=== PATIENT | female | born 1995 | race Hispanic/Latino ===

== ENCOUNTER 2017-01-26 16:06 | Day surgery (SDC) | payer MEDICAID ==
[2017-01-26 16:45] VITALS: BMI 25.5
[2017-01-26 17:25] LABS: Bilirubin Negative (Negative); Blood, Urine Small (Negative); Glucose, Urine (Dipstick) Negative (Negative); Ketone, Urine Negative (Negative); Nitrite Negative (Negative); Protein, Urine (Dipstick) Negative (Neg-Trace)
[2017-01-26 17:28] LABS: Bacteria/HPF None Seen HPF (None Seen); Hyaline Casts/LPF 0-3 HYALINE CAST LPF (0-3 Hyaline); Squamous Epithelial 0-3 HPF (0-3); WBC/HPF 0-3 HPF (0-3)
[2017-01-26] MEDS ORDERED: FLU VACC QS2017-18 36 mo. & older 0.5 ML SYRINGE IM ONE (17:30)
--- NOTE | 2017-01-26 18:37 | CON ---
DATE OF SERVICE: 01/26/2017 HISTORY OF PRESENT ILLNESS: She is a 21-year-old G2, P1, 27 weeks by stated MANE, who has had care in [place]. She just moved to the area. She reports lower abdominal discomfort. She denies r adiation to her back. She denies contractions. She denies rupture of membranes. She reports that s he had a UTI early in and that she treated for only part of the antibiotic course, was conc erned this might be returned. [facility] [employer] HISTORY: at term x1. Denies history of STDs. PAST MEDICAL HISTORY: None. PAST SURGICAL HISTORY: None. ALLERGIES: Denies. MEDICATIONS: vitamins. SOCIAL HISTORY: Denies tobacco, alcohol, or drug use. FAMILY HISTORY: Noncontributory. REVIEW OF SYSTEMS: Eleven point review of systems is noncontributory. PHYSICAL EXAMINATION: GENERAL: Reveals female in no acute distress. VITAL SIGNS: Temperature 98.3, blood pressure 122/71, pulse 71, respirations 18. HEENT: Within normal limits. LUNGS: Clear to auscultation bilaterally. HEART: Regular rhythm. ABDOMEN: Soft, nontender, no rebound or guarding, no CVA tenderness. PELVIC: Vulva without lesions. Vagina without discharge. Cervix closed, long, and high and posteri or, cephalic presentation. Fundal height 27 cm. EXTREMITIES: Without clubbing, cyanosis or edema. monitoring was carried out for more than 30 minutes, which revealed baseline of 130s to 140s, p ositive accelerations, no decels, no contractions noted. Category 1 heart rate tracing. LABORATORY DATA: Thin cath UA was performed which was negative except for small blood, negative prot ein, negative nitrites, negative leukocytes. Urine culture was sent and is pending at this time. IMPRESSION: Discomforts of at 27 weeks' gestation. No evidence of urinary tract infection or labor. PLAN: Discharge home. The patient was instructed to call the Clinic for initiation of an a ntepartum care on Tuesday and given ER precautions.
== END 2017-01-26 18:20 | disposition home or self-care (01) ==
LOC: L&D/OP 16:06
PROVIDERS: ATTEND Obstetrics & Gynecology
DX: O99.89 Other specified diseases and conditions complicating pregnancy, childbirth and the puerperium (principal); R10.30 Lower abdominal pain, unspecified; Z79.899 Other long term (current) drug therapy; Z3A.27 27 weeks gestation of pregnancy; Z87.440 Personal history of urinary (tract) infections
CPT/HCPCS: 81001; 87086; A4353

== ENCOUNTER 2017-03-08 12:08 | Day surgery (SDC) | payer OTHER ==
[2017-03-08 12:35] VITALS: BMI 27.9
[2017-03-08 12:38] VITALS: TEMP 98.8
--- NOTE | 2017-03-08 13:18 | PDOC.LDHP ---
Labor and Delivery H&P Chief complaint: other HPI: 21 yo @ 33.2wks by 17wk US with MANE 04/24/2017 presents from her follow- up [facility] apt for abnormal heart tones heard during her apt. An NST was completed that showed moderate variability and what was reported as a dropped beat every other beat. She denies contractions, vaginal bleeding, fluid loss. She reports decreased movement yesterday and today. She has felt the baby move but not to the normal degree that she normally feels baby. Endorses some round ligament pain. Denies any complications or abnormal ultrasounds. OB hx: 2013 female @ 37.5wks Current gestational age (weeks): 33 (33.2) Due date: 04/24/17 Grav: 2 Para: 1 (1001) OB History Details: see above Current complications: none Abnormal US findings: No Past Medical History: Chronic Migraines Current medications: pre-edith vitamins, other (tylenol) Previous surgical history: none Social history: none - Physical Exam Vital signs reviewed and normal: yes General: NAD, resting Heart: RRR Lungs: CTAB Abdomen: gravid Extremeties: no edema FHT: category 1 [place] contractions every: none - OB Labs Antibody Screen: negative HIV: negative RPR: negative HEPSAg: negative Urine drug screen: negative Rubella: immune - Plan -: 21 yo @ 33.2wks by 17wk US with MANE 04/24/2017 presents from her follow- up [facility] apt for abnormal heart tones, currently asymptomatic with a category 1 strip. Plan: sIUP with suspected arrythmia-Abnormal NST @ [facility], will monitor FHT's here , order a growth ultrasound and BPP. Will have patient follow-up with M. <Jie Denney - Last Filed: 03/08/17 13:14> <Fariba Villasenor - Last Filed: 03/08/17 15:29> Allergies/Adverse Reactions: Allergies Allergy/AdvReac Type Severity Reaction Status Date / Time No Known Allergies Allergy Verified 01/26/17 16:37 Attending Addendum - Attending Addendum I personally evaluated the patient and discussed the management with Dr. Denney. I agree with the History, Examination, Assessment and Plan documented above with any addition or exceptions noted below. BPP 8/8, normal RACHELL, grossly normal appearing fetus. Will set up with MFM for heart evaluation. <Fariba Villasenor - Last Filed: 03/08/17 15:29>
--- NOTE | 2017-03-08 15:45 | ULT ---
OBSTETRICAL ULTRASOUND: BIOPHYSICAL PROFILE: 03/08/2017 COMPARISON: None. HISTORY: arrhythmia. Growth ultrasound assessment. TECHNIQUE: Multiplanar mills-scale sonographic imaging of the gravid uterus is obtained. A routine biophysical p rofile was performed. FINDINGS: A single intrauterine gestation is present with a vertex presentation. heart rate is 139 beats per minute. The placenta is located anteriorly, demonstrating no evidence for abruption or previa. Four-chamber heart view appears unremarkable. Imaging in the region of the diaphragm, stomach, urinary bladder, and umbilical cord insertion appears unremarkable. A three-vessel cord is documented. The region of the kidneys and the spine appear grossly unremarkable. The intracran ial contents are unremarkable. Amniotic fluid index is 13.9 cm. BIOMETRY: BPD: 8.3 cm (33 weeks and 3 days) HC: 29.9 cm (33 weeks and 1 day) AC: 29.9 cm (33 weeks and 1 day) FL: 6.5 cm (33 weeks and 4 days) AVERAGE AGE BASED ON ULTRASOUND: 33 weeks and 2 days. ESTIMATED DATE OF DELIVERY: 04/24/2017 ESTIMATED WEIGHT: 2157 g, plus or minus 319 g. BIOPHYSICAL PROFILE: A 2/2 score is reported by the performing accounts payable specialist on tone, elba thing, movement, and amniotic fluid volume. IMPRESSION: 1. Single intrauterine gestation, as detailed above. 2. Normal /8 biophysical profile. POS: [facility]
--- NOTE | 2017-03-09 11:06 | ULT ---
OBSTETRICAL ULTRASOUND: BIOPHYSICAL PROFILE: 03/08/2017 COMPARISON: None. HISTORY: arrhythmia. Growth ultrasound assessment. TECHNIQUE: Multiplanar mills-scale sonographic imaging of the gravid uterus is obtained. A routine biophysical p rofile was performed. FINDINGS: A single intrauterine gestation is present with a vertex presentation. heart rate is 139 beats per minute. The placenta is located anteriorly, demonstrating no evidence for abruption or previa. Four-chamber heart view appears unremarkable. Imaging in the region of the diaphragm, stomach, urinary bladder, and umbilical cord insertion appears unremarkable. A three-vessel cord is documented. The region of the kidneys and the spine appear grossly unremarkable. The intracran ial contents are unremarkable. Amniotic fluid index is 13.9 cm. BIOMETRY: BPD: 8.3 cm (33 weeks and 3 days) HC: 29.9 cm (33 weeks and 1 day) AC: 29.9 cm (33 weeks and 1 day) FL: 6.5 cm (33 weeks and 4 days) AVERAGE AGE BASED ON ULTRASOUND: 33 weeks and 2 days. ESTIMATED DATE OF DELIVERY: 04/24/2017 ESTIMATED WEIGHT: 2157 g, plus or minus 319 g. BIOPHYSICAL PROFILE: A 2/2 score is reported by the performing liquid center assembler on tone, elba thing, movement, and amniotic fluid volume. IMPRESSION: 1. Single intrauterine gestation, as detailed above. 2. Normal /8 biophysical profile.
== END 2017-03-08 14:50 | disposition home or self-care (01) ==
LOC: L&D/OP 12:08
PROVIDERS: ATTEND Obstetrics & Gynecology
DX: O36.8930 Maternal care for other specified fetal problems, third trimester, not applicable or unspecified (principal); G43.909 Migraine, unspecified, not intractable, without status migrainosus; O36.8130 Decreased fetal movements, third trimester, not applicable or unspecified; Z3A.33 33 weeks gestation of pregnancy; Z79.899 Other long term (current) drug therapy
CPT/HCPCS: 76805; 76819; 99281

== ENCOUNTER 2017-04-19 18:10 | Inpatient (IN) | payer OTHER ==
[2017-04-19 18:40] VITALS: BMI 29.2
[2017-04-19] MEDS ORDERED: Ondansetron HCl/PF 4 MG/2 ML Vial IVP PRN ×2 (18:58→20:30)
[2017-04-19] MEDS ORDERED: Promethazine HCl 25 MG/ML VIAL IM PRN ×2 (18:58→20:30)
[2017-04-19] MEDS ORDERED: Ibuprofen 800 MG TAB PO PRN (19:01)
[2017-04-19] MEDS ORDERED: Lidocaine 1% (PF) 30 ML VIAL SC PRN (19:01)
--- NOTE | 2017-04-19 19:31 | PDOC.LDHP ---
Labor and Delivery H&P Chief complaint: loss of fluid (@ 18:00) HPI: 21 year old @ 39.2 weeks based on LMP c/w 17.1 wk sono. Presents with SROM at 18:00 today and contractions q5 minutes rated 8/10. Requesting epidural for pain management. History of anemia of on iron once a day. Was following with MFM due to detected arrhythmia. At MFM visits heart rate and rhythm have been normal. No other complications in . No complications in past . Current gestational age (weeks): 39 (39.2 wks) Due date: 04/24/17 Dating criteria: last menstrual period Grav: 2 Para: 1 OB History Details: 1. Anemia in on iron once a day Current complications: other (Anemia) Abnormal US findings: Yes ( arrhythmia; followed with MF and no arrhythmia detected) Past Medical History: None Current medications: iron Social history: none - Physical Exam Vital signs reviewed and normal: yes General: breathing through contractions Heart: RRR Lungs: CTAB Abdomen: NTTP Extremeties: no edema FHT: category 1, variability present [place] contractions every: q1-3 minutes - Vaginal Exam cm dilated: 5 (By Maritza) Effacement: 50% Station: 0 - OB Labs Blood type: A RH: positive Antibody Screen: negative HIV: negative RPR: negative HEPSAg: negative GBS: negative Urine drug screen: negative Rubella: immune - Assessment L&D Assessment: term rupture in membranes - Plan Plan: admit to L&D, anesthesia consult for pain management <Melany Salas - Last Filed: 04/19/17 20:25> - Assessment L&D Assessment: term patient in labor <Eliot Moeller - Last Filed: 04/19/17 20:51> Allergies/Adverse Reactions: Allergies Allergy/AdvReac Type Severity Reaction Status Date / Time No Known Allergies Allergy Verified 04/19/17 18:34 Attending Addendum - Attending Addendum I personally evaluated the patient and discussed the management with Dr. Salas. I agree with the History, Examination, Assessment and Plan documented above with any addition or exceptions noted below. Admit for labor. Epidural placed. <Eliot Moeller - Last Filed: 04/19/17 20:51>
[2017-04-19 19:40] LABS: Hemoglobin 11.7 g/dL (12.0-16.0); Mean Corpuscular HGB CONC 33.8 g/dL (32.0-36.0); Mean Corpuscular Volume 76.7 fl (81.0-99.0); Mean Platelet Volume 7.8 fL (7.4-10.4); Platelet Count 264 thou/uL (130-400); RBC Distribution Width 16.4 % (11.5-14.5); Red Blood Cell (RBC) Count 4.49 mill/uL (4.20-5.40); White Blood Cell (WBC) Count 9.1 thou/uL (4.8-10.8)
[2017-04-19] MEDS ORDERED: Bupivacaine 0.5% 20 ML, Fentanyl 400 MCG in Sodium Chloride 0.9% 72 ML EPIDURAL SCH (19:45)
[2017-04-19] MEDS: Lactated Ringer's 1,000 ML IV SCH ×2 (19:56→20:19)
[2017-04-19 20:22] LABS: HBSAg Index 0.14 S/CO (0-0.99); Hep B Surf Ag Non-Reactive S/CO (NonReactive)
[2017-04-19 20:26] LABS: Syphilis Antibody Nonreactive (Nonreactive); Syphilis Antibody Index 0.03 S/CO (<1.00 Non-Reactive)
[2017-04-19] MEDS ORDERED: Communication Order-Pharmacy FS SCH (20:30)
[2017-04-19] MEDS ORDERED: ePHEDrine/0.9% NaCl/PF SYRINGE 50 mg/10 ml SLOW IVP PRN (20:30)
[2017-04-19] MEDS ORDERED: Fentanyl 4mcg/Marcaine 0.1% Cassette 100 ML EPIDURAL SCH (20:30)
[2017-04-19] MEDS ORDERED: Naloxone HCl 0.4 mg/ml Vial IVP PRN ×2 (20:30)
[2017-04-19] MEDS ORDERED: diphenhydrAMINE 50 MG/ML VIAL IVP PRN (20:30)
[2017-04-19] MEDS ORDERED: Eucerin (Mineral Oil/Petrolatum,White) 30 gm Jar TOP PRN (20:30)
[2017-04-19] MEDS ORDERED: Lactated Ringer's 500 ML IV PRN (20:30)
[2017-04-19] MEDS: LR / Pitocin 40 units/1000 ml 1,000 ML IV PRN ×2 (21:52→23:12)
--- NOTE | 2017-04-19 22:22 | PDOC.OPDEL ---
OB Operative/Delivery Note Delivery Dr/Surgeon: Maritza Assist: Trace Pre-Delivery Diagnosis: ruptured membrane Procedure/Post Delivery Dx: spontaneous vaginal delivery Weeks gestation: 39 (39.2) Anesthesia: epidural - Findings A Sex: female Weight: 3.172 kg - 1 min: 8 - 5 min: 9 - Additional Findings/Plan Placenta delivered: spontaneous Repaired Obstetrical Laceration: 2nd degree (perineal) Estimated blood loss: 150 ml Post delivery plan: routine recovery <Melany Salas - Last Filed: 04/20/17 00:53> Attending Addendum - Attending Addendum I personally attended and supervised the delivery. Spontaneous movement of all 4 activities and spontaneous vigorous cry after noted. No complications. Mom and baby in good condition. Skin to skin after delivery. <Eliot Moeller - Last Filed: 04/20/17 05:58>
[2017-04-20] MEDS ORDERED: Benzocaine/Menthol 20-0.5% 60 ML CAN TOP PRN (01:01)
[2017-04-20] MEDS ORDERED: Lanolin Ointment 7 GM TUBE TOP PRN (01:01)
[2017-04-20] MEDS ORDERED: Milk Of Magnesia 30 ML UDCUP PO PRN (01:01)
[2017-04-20] MEDS ORDERED: LR / Pitocin 40 units/1000 ml 1,000 ML IV SCH (01:01)
[2017-04-20] MEDS ORDERED: Adacel (T-DAP) 0.5 ML VIAL IM ONE (01:01)
[2017-04-20] MEDS ORDERED: Bisacodyl 10 MG SUPP PR PRN (01:01)
[2017-04-20] MEDS: Ibuprofen 800 MG TAB PO SCH ×3 (05:40→21:00)
--- NOTE | 2017-04-20 06:38 | PDOC.PP ---
Post Progress Note Post Day #: 1 Subjective: Patient doing well. Pain well controlled with Motrin. She has ambulated and is tolerating PO. No significant overnight events. She is experiencing some difficulty with . States that infant is having some difficulty latching. She desires to primarily breast feed and will need a pump to make this happen. Additionally, she interested in Depo Provera as form of contraception. PO intake tolerated: yes Flatus: yes Ambulation: yes Vital Signs (12 hours) Temp Pulse Resp BP Pulse Ox 04/20/17 03:50 97.7 F 70 18 137/66 04/20/17 02:00 97.7 F 55 L 18 126/77 04/20/17 00:45 98.6 F 50 L 18 138/81 98 04/19/17 20:00 98 F 94 20 Weight Weight 77.111 kg - Physical Examination General: NAD Cardiovascular: no m/r/g, RRR Respiratory: clear to auscultation bilaterally, non-labored breathing Abdominal: + bowel sounds, lochia (wnl), no distention, appropriately TTP Fundus firm & at: just above umbilicus Skin: no rash Neurological: no gross focal deficits Psychiatric: A&Ox3, normal affect Result Diagrams: 04/19/17 19:36 Additional Labs: Post Labs Blood Type A POSITIVE 04/19/17 19:36 Hep Bs Antigen Non-Reactive S/CO (NonReactive) 04/19/17 19:36 (1) (spontaneous vaginal delivery) Code(s): O80 - ENCOUNTER FOR FULL-TERM UNCOMPLICATED DELIVERY Status: Acute Comment: 21 year old delivered TAGA female at 21:43 on 04/19/2017 via . EBL 150 mL. Apgars 8/9. 2nd degree perineal laceration s/p figure of eight stitch for hemostasis. Patient tolerated delivery well. (2) Term delivered Code(s): O80 - ENCOUNTER FOR FULL-TERM UNCOMPLICATED DELIVERY Status: Acute Comment: 21 year old delivered TAGA female at 21:43 on 04/19/2017 via . - Routine PP care - Patient desires to primarily breast feed - Will try to obtain information to get patient a breast pump - Desires Depo Provera as form of contraception - Will put in order for managed security sales consultant as is having trouble latching (3) Second degree perineal laceration Code(s): O70.1 - SECOND DEGREE PERINEAL LACERATION DURING DELIVERY Status: Acute Comment: s/p figure of eight stitch for hemostasis. Good approximation. Hemostatic post repair. Pain well controlled. (4) Anemia affecting in third trimester Code(s): O99.013 - ANEMIA COMPLICATING , THIRD TRIMESTER Status: Acute Comment: - Hg and Hct stable; 11.7 and 34.5, respectively - EBL low at 150 mL - Monitor for signs/symptoms of anemia - Continue iron supplementation <Melany Salas - Last Filed: 04/20/17 08:06> Vital Signs (12 hours) Temp Pulse Resp BP Pulse Ox 04/20/17 08:02 98.9 F 48 L 18 122/67 04/20/17 07:45 98.9 F 48 L 18 04/20/17 03:50 97.7 F 70 18 137/66 04/20/17 02:00 97.7 F 55 L 18 126/77 04/20/17 00:45 98.6 F 50 L 18 138/81 98 Weight Weight 77.111 kg Result Diagrams: 04/19/17 19:36 Additional Labs: Post Labs Blood Type A POSITIVE 04/19/17 19:36 Hep Bs Antigen Non-Reactive S/CO (NonReactive) 04/19/17 19:36 <Chong Gilliland - Last Filed: 04/20/17 11:42> Attending Addendum - Attending Addendum I personally evaluated the patient and discussed the management with Dr. Salas. I agree with and repeated the History, Examination, Assessment and Plan documented above with any addition or exceptions noted below. Pt doing well. No cp/sob/n/v/f/c. Exam reassuring. Usual pp care. consultation. <Chong Gilliland - Last Filed: 04/20/17 11:42>
[2017-04-20] MEDS: Ferrous Sulfate 325 MG TAB PO SCH ×2 (07:59→14:20)
[2017-04-20] MEDS: Acetaminophen 325 MG TAB PO PRN ×3 (08:04→22:55)
[2017-04-20] MEDS: Prenatal Vitamin 1 TAB PO SCH (08:04)
[2017-04-20] MEDS: Docusate Calcium (SURFAK) 240 MG CAP PO SCH ×2 (08:04→20:55)
[2017-04-20] MEDS ORDERED: HYDROcodone/Acetaminophen 5/325 mg Tablet PO SCH (10:00)
[2017-04-21] MEDS: Ibuprofen 800 MG TAB PO SCH ×2 (06:42→14:02)
--- NOTE | 2017-04-21 08:05 | PDOC.PP ---
Post Progress Note Post Day #: 2 Subjective: Patient doing well this AM. No significant overnight events. Patient tolerating PO and ambulating without difficulty. PO intake tolerated: yes Flatus: yes Ambulation: yes Weight Weight 77.111 kg - Physical Examination General: NAD Cardiovascular: no m/r/g, RRR Respiratory: clear to auscultation bilaterally, non-labored breathing Abdominal: + bowel sounds, lochia (wnl), no distention, appropriately TTP Fundus firm & at: below umbilicus Skin: no rash Neurological: no gross focal deficits Psychiatric: A&Ox3, normal affect Result Diagrams: 04/19/17 19:36 Additional Labs: Post Labs Blood Type A POSITIVE 04/19/17 19:36 Hep Bs Antigen Non-Reactive S/CO (NonReactive) 04/19/17 19:36 (1) (spontaneous vaginal delivery) Code(s): O80 - ENCOUNTER FOR FULL-TERM UNCOMPLICATED DELIVERY Status: Acute Comment: 21 year old delivered TAGA female infant at 21:43 on 04/19/2017 via . EBL 150 mL. Apgars 8/9. 2nd degree perineal laceration s/p figure of eight stitch for hemostasis. Patient tolerated delivery well. (2) Term delivered Code(s): O80 - ENCOUNTER FOR FULL-TERM UNCOMPLICATED DELIVERY Status: Acute Comment: 21 year old delivered TAGA female at 21:43 on 04/19/2017 via . - Routine PP care - Patient desires to primarily breast feed - Will try to obtain information to get patient a breast pump - Desires Depo Provera as form of contraception - national sales consultant has seen patient; will reevaluate today (3) Second degree perineal laceration Code(s): O70.1 - SECOND DEGREE PERINEAL LACERATION DURING DELIVERY Status: Acute Comment: s/p figure of eight stitch for hemostasis. Good approximation. Hemostatic post repair. Pain well controlled. (4) Anemia affecting in third trimester Code(s): O99.013 - ANEMIA COMPLICATING , THIRD TRIMESTER Status: Acute Comment: - Hg and Hct stable; 11.7 and 34.5, respectively - EBL low at 150 mL - Monitor for signs/symptoms of anemia - Continue iron supplementation - Assessment/Plan Plan to d/c home today pending consult and bilirubin level. Follow up with [facility] in 2 weeks. <Melany Salas - Last Filed: 04/21/17 08:55> Vital Signs (12 hours) Temp Pulse Resp BP 04/21/17 08:43 98.6 F 71 20 125/72 Weight Weight 77.111 kg Result Diagrams: 04/19/17 19:36 Additional Labs: Post Labs Blood Type A POSITIVE 04/19/17 19:36 Hep Bs Antigen Non-Reactive S/CO (NonReactive) 04/19/17 19:36 <Chong Gilliland - Last Filed: 04/21/17 10:16> Attending Addendum - Attending Addendum I personally evaluated the patient and discussed the management with resident team. I agree with and repeated the History, Examination, Assessment and Plan documented above with any addition or exceptions noted below. Doing well. Ok for discharge. <Chong Gilliland - Last Filed: 04/21/17 10:16>
[2017-04-21] MEDS: Docusate Calcium (SURFAK) 240 MG CAP PO SCH (08:25)
[2017-04-21] MEDS: Acetaminophen 325 MG TAB PO PRN ×2 (08:26→12:33)
[2017-04-21] MEDS: Prenatal Vitamin 1 TAB PO SCH (08:26)
[2017-04-21 08:44] VITALS: BP 125/72; TEMP 98.6
[2017-04-21] MEDS: Ferrous Sulfate 325 MG TAB PO SCH (09:19)
--- NOTE | 2017-04-25 19:11 | OP-2 ---
DELIVERING PHYSICIAN: Melany Salas DO ATTENDING: Eliot Moeller M.D. PROCEDURE: Spontaneous vaginal delivery. ANESTHESIA: Epidural. ESTIMATED BLOOD LOSS: 150 mL PREOPERATIVE DIAGNOSES: 1. Term intrauterine . 2. Spontaneous rupture of membranes. 3. Anemia in . POSTOPERATIVE DIAGNOSES: 1. Term intrauterine , delivered. 2. Spontaneous rupture of membranes. 3. Second-degree perineal laceration status post repair. INDICATIONS: A 21-year-old female G2, P1 presented with spontaneous rupture of membranes and was adm itted to Labor and Delivery for expected management. DELIVERY NOTE: This is a 21-year-old female, G2, P1-0-0-1 at 39 and 2 weeks who delivered a viable f emale at 21:43 on 04/19/2017. Following an uneventful antepartum course, a vigorous female wa s delivered over an intact perineum in the occipitoanterior position. Anterior shoulder and then rem ainder of the body was delivered. There was no nuchal cord. The head was held down and mouth and na res were bulb suctioned. Cord clamped and cut and cord blood collected. Placenta delivered intact w ith a 3-vessel cord noted. Fundal massage was performed and the fundus was firm. The cervix and vag oscar were inspected and there was found to be a second degree perineal laceration which was repaired u sing 3-0 Vicryl in the usual fashion with good approximation and hemostasis. went to nursery in good condition for routine care. Apgars were 8 and 9 at 1 and 5 minutes respectively. Th e patient tolerated delivery well and went to after routine recovery/care.
== END 2017-04-21 17:10 | disposition home or self-care (01) | DRG 775 ==
LOC: L&D/OP 18:10 → L&D 19:31 → 3SW 04-20 00:43
PROVIDERS: ADMIT Family Medicine; ATTEND Family Medicine
PROC: 10E0XZZ Delivery of Products of Conception, External Approach (ICD-10-PCS; principal; 2017-04-19)
PROC: 0KQM0ZZ Repair Perineum Muscle, Open Approach (ICD-10-PCS; 2017-04-19)
DX: O99.02 Anemia complicating childbirth (principal); O70.1 Second degree perineal laceration during delivery; Z3A.39 39 weeks gestation of pregnancy; Z37.0 Single live birth
CPT/HCPCS: 51701; 85027; 86780; 87340; J2001; J3010; J3490; J7050

== ENCOUNTER 2017-11-04 21:15 | Emergency (ER) | payer MEDICAID, SELFPAY | END 2017-11-05 01:33 | disposition home or self-care (01) | LOC: ERS 21:15 | DX: J06.9 Acute upper respiratory infection, unspecified (principal) | CPT/HCPCS: 87081; 87430; 87804; 99283 ==

== ENCOUNTER 2018-04-07 09:33 | Emergency (ER) | payer SELFPAY ==
[2018-04-07] MEDS ORDERED: Acetaminophen 500 MG TAB ONE (10:50)
== END 2018-04-07 11:14 | disposition home or self-care (01) ==
LOC: ERS 09:33
DX: J06.9 Acute upper respiratory infection, unspecified (principal); R11.0 Nausea
CPT/HCPCS: 87804; 99283

== ENCOUNTER 2019-01-15 13:51 | Day surgery (SDC) | payer OTHER ==
[2019-01-15 14:23] VITALS: BMI 26.2
[2019-01-15 14:45] VITALS: BP 109/65; TEMP 98
--- NOTE | 2019-01-15 15:29 | PDOC.LDHP ---
Labor and Delivery H&P Chief complaint: other (pelvic pain) HPI: Pt is 23 yo at 36.4 weeks c/w 11.6 wk sono who presents for pelvic pain. She says she has been having intermittent, burning bone pain, that is worse with lying down and improves with movement. It is usually worse in the evening and mornings. She has not taken any medication for it. She denies dysuria, loss of fluid, bloody discharge. She endorses good movement and clear vaginal discharge. Current gestational age (weeks): 36 Due date: 02/09/19 Dating criteria: first trimester ultrasound Grav: 3 Para: 2 OB History Details: Hyperthyroidism diagnosed 3 months before. Current complications: none Abnormal US findings: No Past Medical History: Hyperthyroidism Current medications: pre- vitamins Previous surgical history: none Allergies/Adverse Reactions: Allergies Allergy/AdvReac Type Severity Reaction Status Date / Time No Known Allergies Allergy Verified 01/15/19 14:14 Social history: none - Physical Exam Vital signs reviewed and normal: yes General: NAD Heart: RRR Lungs: CTAB Abdomen: NTTP Extremeties: no edema FHT: category 1 (130) [place] contractions every: none - OB Labs Blood type: A RH: positive Antibody Screen: negative HIV: negative RPR: negative HEPSAg: negative 1 hour GCT: negative (126) Rubella: immune - Assessment Round Ligament Pain - Plan -: Pt is 23 yo at 36.4 weeks c/w 11.6 wk sono who presents for pelvic pain. 1. Round Ligament Pain * Getting a UA to rule out UTI * Giving Tylenol 1000 po x1 2. Hx of Hypothyroidism * Last labs are wnl
[2019-01-15] MEDS ORDERED: Acetaminophen 500 MG TAB PO SCH ×2 (15:30→16:00)
[2019-01-15 15:46] LABS: Bacteria/HPF 3+ HPF (None Seen); Bilirubin Negative (Negative); Blood, Urine Negative (Negative); Clarity Turbid (Clear); Glucose, Urine (Dipstick) Normal (Negative); Leukocyte 500 Leu/uL (Negative); Nitrite Negative (Negative); Protein, Urine (Dipstick) 20 mg/dL (Neg-Trace); RBC/HPF 0-3 HPF (0-3); Urobilinogen Normal mg/dL (Less than 2)
[2019-01-15 16:34] LABS: Bilirubin Negative (Negative); Blood, Urine Negative (Negative); Clarity Clear (Clear); Glucose, Urine (Dipstick) Normal (Negative); Leukocyte Negative Leu/uL (Negative); Nitrite Negative (Negative); Protein, Urine (Dipstick) Negative (Neg-Trace); RBC/HPF 0-3 HPF (0-3); Squamous Epithelial 0-3 HPF (0-3); Urobilinogen Normal mg/dL (Less than 2); WBC/HPF 0-3 HPF (0-3)
[2019-01-15 16:44] LABS: Bacteria/HPF None Seen HPF (None Seen)
--- NOTE | 2019-01-15 17:01 | PDOC.BPN ---
- Brief Progress Note UA for pt was negative. A&P Diagnosis: Round Ligament Pain Plan: Take Tylenol 650 Q6H for pain, belly band recommend, continue with baths, pelvic exercise, and support while sleeping We will D/C f/u with regularly scheduled appointment at [facility].
== END 2019-01-15 17:15 | disposition home or self-care (01) ==
LOC: L&D/OP 13:51
PROVIDERS: ATTEND Student in an Organized Health Care Education/Training Program
DX: O99.89 Other specified diseases and conditions complicating pregnancy, childbirth and the puerperium (principal); R10.2 Pelvic and perineal pain; Z3A.36 36 weeks gestation of pregnancy
CPT/HCPCS: 81003; 81015; 99283

== ENCOUNTER 2019-02-04 19:30 | Inpatient (IN) | payer MEDICAID, OTHER ==
--- NOTE | 2019-01-15 15:03 | PDOC.LDHP ---
Labor and Delivery H&P Chief complaint: other (Pelvic pain) HPI: Pt is 23 yo at 36.4 weeks c/w 11.6 wk sono who presents for pelvic pain. She says she has been having intermittent, burning bone pain, that is worse with lying down and improves with movement. It is usually worse in the evening and mornings. She has not taken any medication for it. She denies dysuria, loss of fluid, bloody discharge. She endorses good movement and clear vaginal discharge. Current gestational age (weeks): 36 Due date: 02/09/19 Dating criteria: first trimester ultrasound Grav: 3 Para: 2 OB History Details: Diagnosed with Hyperthroidism 3 months before . She currently sees MFM and they advise against taking medications. Current complications: none Current medications: pre- vitamins Previous surgical history: none Allergies/Adverse Reactions: Allergies Allergy/AdvReac Type Severity Reaction Status Date / Time No Known Allergies Allergy Verified 01/15/19 14:14 Social history: none - Physical Exam Vital signs reviewed and normal: yes (T:98, HR: 90, BP: 109/65, Wt: 153.54 kg) General: NAD, resting Heart: RRR Lungs: CTAB Abdomen: NTTP Extremeties: no edema - OB Labs Blood type: A RH: positive Antibody Screen: negative HIV: negative RPR: negative HEPSAg: negative 1 hour GCT: negative (124) Rubella: immune - Assessment Round Ligament Pain - Plan -: Pt is 23 yo at 36.4 weeks c/w 11.6 wk sono who presents for pelvic pain. 1. Round Ligament Pain * Getting a UA to rule out UTI * Giving Tylenol 1000 po x1 2. Hx of Hypothyroidism * Last labs are wnl
[~2019-02-04 19:30] MED LIST: Acetaminophen 500 MG TAB PO SCH; Bupivacaine 0.25% 10 ML VIAL ONE; Bupivacaine PF 0.5% 30 ML VIAL ONE
[2019-02-04 20:16] VITALS: BMI 26.1
[2019-02-04] MEDS: Lactated Ringer's 1,000 ML IV SCH (20:25)
--- NOTE | 2019-02-04 21:23 | PDOC.FPRHP ---
- History of Present Illness Chief Complaint: IOL History of Present Illness: 23 yo F @ 39.5 wks c/w 11.6 wk US with history of hyperthyroidism, not requiring medical intervention, who presents for IOL. She endorses good movement, thick clear vaginal discharge. She denies any lose of fluid or vaginal bleeding. Record review shows that US showed baby as SGA and with Urinary Tract Dilation on the right side that have both resolved. - Allergies/Adverse Reactions Allergies Allergy/AdvReac Type Severity Reaction Status Date / Time No Known Allergies Allergy Verified 01/15/19 14:14 - Home Medications Medication Instructions Recorded Confirmed Type Mip840/Iron Fum/Folic/Docusate 1 tab PO 02/04/19 History [ 19] - History PMHx: Hyperthyroidism PSHx: None FHx: PGF: DM, Lung Cancer ( at 50) MGM: HTN, GERD Social: Lives with children and . No drinking, smoking, or recreational drugs. - Vital signs BP: [] HR: [] RR: [] Tmax: [] Pox: []% on [] Wt: [] FMR H&P: Upper Level - Plan Date/Time: 02/04/192119 I, [], have evaluated this patient and agree with findings/plan as outlined by architecture internship resident. Pertinent changes/additions are listed here.
--- NOTE | 2019-02-04 21:31 | PDOC.FPROB ---
Addendum entered and electronically signed by Jose Mirza MD 02/05/19 01:24: Original Note: FMR OB H&P: HPI - History of Present Illness Chief Complaint: IOL History of Present Illness: 23 yo F @ 39.5 wks c/w 11.6 wk US with history of hyperthyroidism, not requiring medical intervention, who presents for IOL. She endorses good movement, thick clear vaginal discharge. She denies any lose of fluid or vaginal bleeding. She has some pelvic bone pain. She was seen 3 weeks ago for the pain and it resolved for some time, but she has been having the pain the last couple of days. Record review shows that US showed baby as SGA and with Urinary Tract Dilation on the right side that have both resolved. Primary Care Physician: DANIELA Alonzo FMR OB H&P: Current - Care : 3 Para: 2002 Gestational age: 39.2 Due date: 02/09/19 Dating Criteria: 11.6 wk sono c/w LMP (04/21/18) - OB Labs Blood type: A RH: positive Antibody Screen: negative HIV: negative RPR: negative HepBsAg: negative Rubella: immune Quad screen: negative Gonorrhea: negative Chlamydia: negative 1 hour gtt: Negative (124) GBS: positive H&H: 10.9/31.7 Platelets: 269 FMR OB H&P: History - Past Medical History PMH: Hyperthyroidism - OB History OB History: 2 previous SVDs - DRAMATIC DIRECTOR History DRAMATIC DIRECTOR History: Pap smear 2018 normal - Surgical History Sx History: None - Social History Social History: No smoking, drinking, recreational drugs - Family History Family History: Paternal GF: DM, Lung Cancer ( 50) Maternal GM: HTN, GERD FMR OB H&P: Medications - Current Home Medications: Medication Instructions Recorded Confirmed Type Big456/Iron Fum/Folic/Docusate 1 tab PO 02/04/19 History [ 19] Allergies/Adverse Reactions: Allergies Allergy/AdvReac Type Severity Reaction Status Date / Time No Known Allergies Allergy Verified 01/15/19 14:14 FMR OB H&P: ROS - Review of Systems General: denies: fever/chills Eyes: denies: vision changes ENT: denies: nasal congestion, rhinorrhea Cardiovascular: denies: chest pain, edema Respiratory: reports: shortness of breath. denies: cough, congestion Gastrointestinal: reports: diarrhea, constipation. denies: abdominal pain, nausea, vomiting Genitourinary (Female): reports: vaginal pressure. denies: dysuria, vaginal discharge, vaginal pain, vaginal bleeding Musculoskeletal: denies: pain, tenderness Neurologic: denies: numbness, weakness Integumentary: denies: itching, rash FMR OB H&P: Vital Signs - Maternal Vital signs: Vital Signs - First Documented Temp Pulse Resp BP Pulse Ox 98.0 F 97 18 124/92 H 99 02/04/19 20:08 02/04/19 20:08 02/04/19 20:08 02/04/19 20:08 02/04/19 20:08 - Heart Tones Baseline: 120 Variability: moderate Acceleration: present Deceleration: absent Category: category 1 [place] contractions every: No contractions FMR OB H&P: Physical Exam - Physical Exam General: NAD, awake, alert and oriented HEENT: normocephalic and atraumatic, PERRLA, EOMI, MMM, oropharynx clear Neck: supple Heart: RRR, normal S1/S2 General: CTAB Abdomen: soft, gravid, fundus(cm) Musculoskeletal: pulses present, FROM in all four extremities Neurological: cranial nerves II through XII intact Skin: no rash Lymphatic: no unusual bruising or bleeding, no purpura, no petechia Psychiatric: normal mood and affect - Pelvic Exam Vulva: normal hair distribution, no blood Cervix: no masses, no lesions SVE: 3/50/-3, Posterior Marina score: 4, Modified 7 FMR OB H&P: A/P - Problem List (1) Elective induction of labor planned Current Visit: Yes Status: Acute Code(s): [id number] - Disposition: 23 yo F @ 39.5 wks c/w 11.6 wk US with history of hyperthyroidism, not requiring medical intervention, who presents for IOL. 1. IOL Marina: 4, Modified Marina: 7. 2 previous vaginal deliveries. We will start with pit. * FHT: Cat 1, FHR: 120, Moderate Variability, Accelerations present, No decels * Will start pit @ 0100 on 02/05 after ppx for GBS positivity 2. GBS + * Will PPx with Penicillin starting at 2100 on 02/04 * Will have Abx for 2 hours before pit is started 3. Hyperthyroidism * Pt is wnl on last labs from [facility] * She is monitored by MFM and they recommend no medications at this time. Discussion: Date/Time: 02/04/192128 This H&P was discussed with [] and [] who agree with the above documentation and plan. Addendum - Attending - Attending Attestation Date/Time: 02/04/192210 I personally evaluated the patient and discussed the management with Dr. Mikaela Mirza I agree with the History, Examination, Assessment and Plan documented above with any addition or exceptions noted below - 23 yo @39.2 weeks with h/ o hyperthyroidism here for induction of labor. Occasional ctx. Denies LOF, VB (+ ) FM. Afebrile VSS SVE /-3/med/post. Category 1 FHTs. [place] occasional ctx. A /P: 1) IUP@39.2 weeks for elective induction - GBS(+) - will initiate PCN prophylaxis and plan to start pitocin in few hours after initial dose of abx. Reassuring FHTs.
[2019-02-04] MEDS ORDERED: Acetaminophen 500 MG TAB PO PRN (22:05)
[2019-02-04] MEDS ORDERED: Promethazine HCl 25 MG/ML VIAL IM PRN (22:05)
[2019-02-04] MEDS ORDERED: Lidocaine 1% (PF) 30 ML VIAL SC PRN (22:05)
[2019-02-04] MEDS ORDERED: hydrALAZINE 20 MG/ML VIAL SLOW IVP PRN (22:05)
[2019-02-04] MEDS ORDERED: Methylergonovine 0.2 MG/ML VIAL IM PRN (22:05)
[2019-02-04] MEDS ORDERED: Butorphanol Tartrate 1 MG/ML VIAL SLOW IVP PRN (22:05)
[2019-02-04] MEDS ORDERED: Misoprostol 200 MCG TAB PR PRN (22:05)
[2019-02-04] MEDS ORDERED: Ibuprofen 800 MG TAB PO PRN (22:05)
[2019-02-04] MEDS ORDERED: Carboprost 250 MCG/ML AMP IM PRN (22:05)
[2019-02-04] MEDS ORDERED: Docusate 100 MG CAP PO PRN (22:05)
[2019-02-04] MEDS ORDERED: Ondansetron PF 4 MG/2 ML Vial IVP PRN (22:05)
[2019-02-04] MEDS ORDERED: Penicillin G Potassium 5 MILL.UNITS in Sodium Chloride 0.9% 100 ML IVPB SCH (22:15)
[2019-02-04] MEDS: Penicillin G 2.5 MILL.units 2.5 MILL.UNITS in Premix Bag 1 BAG IVPB SCH (23:00)
[2019-02-04 23:16] LABS: Hemoglobin 9.8 g/dL (12.0-16.0); Mean Corpuscular HGB CONC 32.6 g/dL (32.0-36.0); Mean Corpuscular Hemoglobin 22.4 pg (27.0-31.0); Mean Corpuscular Volume 68.5 fL (78.0-98.0); Platelet Count 215 thou/uL (130-400); RBC Distribution Width 14.4 % (11.5-14.5); Red Blood Cell (RBC) Count 4.36 mill/uL (4.20-5.40); White Blood Cell (WBC) Count 11.7 thou/uL (4.8-10.8)
[2019-02-04 23:53] LABS: HBSAg Index 0.23 S/CO (0-0.99); Hep B Surf Ag Non-Reactive S/CO (NonReactive)
[2019-02-04 23:54] LABS: Syphilis Antibody Nonreactive (Nonreactive); Syphilis Antibody Index 0.04 S/CO (<1.00 Non-Reactive)
[2019-02-05] MEDS ORDERED: NS w/ Oxytocin 10 units 500 ML IV SCH (01:15)
[2019-02-05] MEDS: Penicillin G 2.5 MILL.units 2.5 MILL.UNITS in Premix Bag 1 BAG IVPB SCH ×3 (03:08→11:07)
[2019-02-05] MEDS ORDERED: Fentanyl 4 mcg/Bup 0.1% Cadd 100 ML ONE (04:16)
[2019-02-05] MEDS: Lactated Ringer's 1,000 ML IV SCH ×2 (04:31→11:09)
[2019-02-05] MEDS ORDERED: Ondansetron PF 4 MG/2 ML Vial IVP PRN (05:16)
[2019-02-05] MEDS ORDERED: Lactated Ringer's 500 ML IV PRN (05:16)
[2019-02-05] MEDS ORDERED: ePHEDrine/0.9% NaCl/PF SYRINGE 50 mg/10 ml SLOW IVP PRN (05:16)
[2019-02-05] MEDS ORDERED: diphenhydrAMINE 50 MG/ML VIAL IVP PRN (05:16)
[2019-02-05] MEDS ORDERED: Naloxone HCl 0.4 mg/ml Vial IVP PRN ×2 (05:16)
[2019-02-05] MEDS ORDERED: Promethazine HCl 25 MG/ML VIAL IM PRN (05:16)
[2019-02-05] MEDS ORDERED: Fentanyl 4 mcg/Bupivacaine 0.1% Cassette 100 ML EPIDURAL SCH (05:30)
[2019-02-05] MEDS ORDERED: Communication Order-Pharmacy FS SCH (05:30)
--- NOTE | 2019-02-05 06:01 | PDOC.LDPN ---
Labor & Delivery Progress Note - Subjective Subjective: comfortable - Objective Vital signs reviewed and normal: yes General: NAD, resting Uterine fundus: non tender Dilation: 4 Effacement: 50% Station: -3 FHT: category 1 [place] contractions every: 4-6 minutes - Assessment (1) Elective induction of labor planned Code(s): [id number] - Current Visit: Yes Status: Acute Plan: continue plan of care
--- NOTE | 2019-02-05 06:13 | PDOC.LDPN ---
Labor & Delivery Progress Note - Subjective Subjective: other (SOB while laying down flat on R side) - Objective Vital signs reviewed and normal: yes General: NAD Uterine fundus: non tender Dilation: 4 Effacement: 50% Station: -2 FHT: category 1 [place] contractions every: 3-4 minutes - Assessment (1) Elective induction of labor planned Code(s): [id number] - Current Visit: Yes Status: Acute Plan: continue plan of care, other (Respositioned patient sitting up. Will monitor.)
--- NOTE | 2019-02-05 06:56 | PDOC.LDPN ---
Labor & Delivery Progress Note - Subjective Subjective: comfortable, no concerns - Objective Vital signs reviewed and normal: yes General: NAD, resting Uterine fundus: non tender Dilation: 4 cm Effacement: 50% Station: -2 FHT: category 1 [place] contractions every: Q4M Resuscitative measures: maternal IV fluids (LR @ 125 ml/hr) - Assessment (1) Positive GBS test Code(s): B95.1 - STREPTOCOCCUS, GROUP B, CAUSING DISEASES CLASSD [id number] Current Visit: Yes Status: Acute (2) Elective induction of labor planned Code(s): [id number] - Current Visit: Yes Status: Acute Plan: continue plan of care, pitocin for augmentation -: 23 y/o admitted to L&D Floor for IOL. 1. IOL -SVE: /-2 (0530) -Maternal vital signs WNL -Cat 1 strip without decels -No loss of fluid -Epidural in place -Pitocin @ 4 mU/minute -LR @ 125 ml/hr -SVE Q2H 2. GBS + -No maternal fever or abnormal FHTs -s/p Penicillin G 5M IU and 2.5M IU as per protocol -Continue to monitor maternal vital signs Dispo: Continue to monitor maternal vital signs and FHTs. Augment labor with Pitocin per protocol with ongoing fluid resuscitation. SVE Q2H. Expected LOS > 48H. Addendum - Attending - Attending Attestation Date/Time: 02/05/19 1100 I personally evaluated the patient and discussed the management with Dr. Gold. I agree with the History, Examination, Assessment and Plan documented above with any addition or exceptions noted below.
[2019-02-05] MEDS: Acetaminophen 325 MG TAB PO PRN ×2 (07:26→21:39)
--- NOTE | 2019-02-05 09:30 | PDOC.BPN ---
- Brief Progress Note SVE performed at 0830 revealed progressive change to 5/60/-2. Maternal vital signs were WNL and FHT were in the 130s with no decels.
--- NOTE | 2019-02-05 10:21 | PDOC.BPN ---
<Gerardo Gold - Last Filed: 02/05/19 10:20> - Brief Progress Note SVE performed at 0945 revealed progressive change to 6/75/-2. Maternal vital signs were WNL and FHT were in the 130s with no decels. <Chong Gilliland - Last Filed: 02/05/19 11:06> Addendum - Attending - Attending Attestation Date/Time: 02/05/19 1108 I personally evaluated the patient and discussed the management with the team. I agree with the History, Examination, Assessment and Plan documented above with any addition or exceptions noted below. Recheck in 1-2 hours and likely AROM at that time. Anticipate .
--- NOTE | 2019-02-05 11:12 | PDOC.LDPN ---
Labor & Delivery Progress Note - Subjective Subjective: comfortable - Objective Vital signs reviewed and normal: yes General: NAD SVE: @ 1045 by Nurse Nicki 7.5/80/-1 FHT: category 1, variability present [place] contractions every: 2-3 min Procedures: SROM with clear fluid - Assessment (1) Encounter for induction of labor Code(s): Z34.90 - ENCNTR FOR SUPRVSN OF NORMAL , UNSP, UNSP TRIMESTER Current Visit: Yes Status: Acute Comment: Pt continues to make cervical change SROM at 1045 -Continue cervical checks q2h -Epidural in place -Continue pitocin as tolerated Plan: continue plan of care Addendum - Attending - Attending Attestation Date/Time: 02/05/19 1317 I personally evaluated the patient and discussed the management with the team. I agree with the History, Examination, Assessment and Plan documented above with any addition or exceptions noted below.
[2019-02-05] MEDS: NS / Oxytocin 40 units/1000ml 1,000 ML IV PRN ×2 (11:50→14:24)
[2019-02-05] MEDS ORDERED: Ondansetron ODT 4 MG TAB SL PRN (14:46)
[2019-02-05] MEDS ORDERED: Milk Of Magnesia 30 ML UDCUP PO PRN ×2 (14:46)
[2019-02-05] MEDS ORDERED: Polyethylene Glycol 3350 17 GM Packet PO PRN (14:46)
[2019-02-05] MEDS ORDERED: Lanolin Ointment 7 GM TUBE TOP PRN (14:46)
[2019-02-05] MEDS ORDERED: hydrALAZINE 20 MG/ML VIAL SLOW IVP PRN (14:46)
[2019-02-05] MEDS ORDERED: Preparation H Ointment 28 GM TUBE PR PRN (14:46)
[2019-02-05] MEDS ORDERED: NS / Oxytocin 40 units/1000ml 1,000 ML IV SCH (14:46)
[2019-02-05] MEDS ORDERED: Adacel (T-DAP) 0.5 ML SYRINGE IM ONE (14:46)
[2019-02-05] MEDS ORDERED: Bisacodyl 10 MG SUPP PR PRN (14:46)
[2019-02-05] MEDS: Ibuprofen 800 MG TAB PO SCH ×2 (15:53→23:01)
[2019-02-05] MEDS: Ferrous Sulfate 325 MG TAB PO SCH (17:59)
[2019-02-05 19:54] VITALS: TEMP 98.2
[2019-02-05] MEDS ORDERED: Docusate 100 MG CAP PO SCH (21:00)
[2019-02-05] MEDS: Docusate Calcium (SURFAK) 240 MG CAP PO SCH (21:39)
--- NOTE | 2019-02-06 06:11 | PDOC.PP ---
Post Progress Note Post Day #: 1 Subjective: Pain is well controlled. . Voiding. Tolerating PO. PO intake tolerated: yes Flatus: no Ambulation: yes Vital Signs (12 hours) Temp Pulse Resp BP Pulse Ox 02/05/19 20:00 100 02/05/19 19:53 98.2 F 61 20 125/67 100 Weight Weight 68.946 kg - Physical Examination General: NAD Cardiovascular: no m/r/g, RRR Respiratory: clear to auscultation bilaterally, non-labored breathing Abdominal: + bowel sounds, appropriately TTP Neurological: no gross focal deficits Psychiatric: A&Ox3, normal affect Result Diagrams: 02/04/19 22:56 Additional Labs: Post Labs Blood Type A POSITIVE 02/04/19 22:55 Hep Bs Antigen Non-Reactive S/CO (NonReactive) 02/04/19 22:56 - Assessment/Plan 23yo delivered TAGA female via at 1139 on 02/05 at 39.6 wks by LMP 11.6wk US Term , delivered - Meeting PP milestones - Continue routine care GBS + - Received adequate ppx Hyperthyroidism - Will check TSH, Free T4/T3 prior to discharge and in 6 weeks. Kaleigh Alonzo MD PGY-2 Addendum - Attending - Attending Attestation Date/Time: 02/06/19 6296 I personally evaluated the patient and discussed the management with Dr. Alonzo. I agree with the History, Examination, Assessment and Plan documented above with any addition or exceptions noted below. Patient would like to go home @ 24h. GBS+ with adequate ppx. Risks of sepsis discussed. She has f/u tomorrow and voices understanding.
[2019-02-06] MEDS: Ibuprofen 800 MG TAB PO SCH ×3 (06:50→15:30)
[2019-02-06 08:09] VITALS: BP 115/70
--- NOTE | 2019-02-06 08:13 | DN ---
DATE OF PROCEDURE: 02/05/2019 DELIVERING PHYSICIANS: 1. Kaleigh Alonzo MD, PGY-2 2. Ann Toro MD, PGY-3. ATTENDING: Chong Gilliland MD PROCEDURE PERFORMED: Spontaneous vaginal delivery. ANESTHESIA: Epidural, local for repair. QUANTITATIVE BLOOD LOSS: 50 mL. PREOPERATIVE DIAGNOSES: 1. Term intrauterine , elective induction of labor. 2. GBS positive, adequate treatment. 3. Hyperthyroidism. POSTOPERATIVE DIAGNOSES: 1. Term intrauterine , delivered. 2. GBS positive, adequately treated. 3. Hyperthyroidism. INDICATIONS: A 23-year-old female, G3, P2-0-0-2, presents for elective induction of labor. DELIVERY NOTE: This is a 23-year-old, G3, P2-0-0-2 female at 39.6 weeks, who delivered a viable female infant at 1139. Following an uneventful antepartum course, a vigorous female was delivered over peritoneum in occiput anterior position. Anterior shoulder and then remainder of the body delivered. No nuchal cord. The head was held down, and mouth and nares were bulb suctioned. Cord clamped after delayed cord clamping, and cut and cord blood collected. Placenta delivered intact in [place] position with a three-vessel cord noted. Fundal massage was performed and the fundus was firm. The cervix and vagina were inspected, and found to have second-degree hemostatic laceration that was repaired with chromic gut in the usual fashion with good approximation after local anesthetic was injected at the site. The infant went to nursery in good condition for routine care. Apgars were 9 and 9 at 1 and 5 minutes respectively. The patient tolerated delivery well and went to after routine recovery care. Job ID: [id number] Attending addendum: I was present for the entire delivery and repair. UNITED HEALTH SERVICESAlcides
[2019-02-06] MEDS ORDERED: Prenatal Vitamin 1 TAB PO SCH (09:00)
[2019-02-06] MEDS: Ferrous Sulfate 325 MG TAB PO SCH (09:31)
[2019-02-06] MEDS: Docusate Calcium (SURFAK) 240 MG CAP PO SCH (09:32)
[2019-02-06] MEDS: Acetaminophen 325 MG TAB PO PRN (13:22)
--- NOTE | 2019-02-06 13:41 | PDOC.EVN ---
Event Note - Event Note Event Note: At ~1330 on 02/06/19, Dr. Toro and Dr. Gold counseled and Mrs. Nolan on the risks associated with being discharged within 24H of a vaginal delivery in the setting of a GBS+ test result. They were counseled that even with adequate antibiotic prophylaxis there was still a risk for developing sepsis. As such, they were encouraged to be vigilant in order to observe their baby for any signs of clinical deterioration, such as increased or difficulty breathing or grunting, fever, difficulty feeding, or changes in muscle tone or pallor. They both acknowledged their understanding of the risk, albeit small, and elected to be discharged at 24H rather than 48H. They confirmed that they would follow-up with [facility] within 24H of discharge.
[2019-02-06 14:25] LABS: Free T4 (Free Thyroxine) 0.71 ng/dL (0.70-1.48); Thyroid Stimulating Hormone 0.0638 uIU/mL (0.35-4.94)
== END 2019-02-06 16:15 | disposition home or self-care (01) | DRG 807 ==
LOC: L&D 19:34 → 3SW 02-05 14:45
PROVIDERS: ADMIT Emergency Medicine; ATTEND Emergency Medicine
PROC: 10E0XZZ Delivery of Products of Conception, External Approach (ICD-10-PCS; principal; 2019-02-05)
PROC: 0KQM0ZZ Repair Perineum Muscle, Open Approach (ICD-10-PCS; 2019-02-05)
PROC: 10907ZC Drainage of Amniotic Fluid, Therapeutic from Products of Conception, Via Natural or Artificial Opening (ICD-10-PCS; 2019-02-05)
PROC: 3E033VJ Introduction of Other Hormone into Peripheral Vein, Percutaneous Approach (ICD-10-PCS; 2019-02-05)
DX: O99.824 Streptococcus B carrier state complicating childbirth (principal); Z37.0 Single live birth; O70.1 Second degree perineal laceration during delivery; O99.284 Endocrine, nutritional and metabolic diseases complicating childbirth; Z3A.39 39 weeks gestation of pregnancy; E05.90 Thyrotoxicosis, unspecified without thyrotoxic crisis or storm
CPT/HCPCS: 36415; 51702; 84439; 84443; 84481; 85027; 86780; 86850; 86900; 86901; 87340; J2405; J2540; J2590; J3490; S0020